=== PATIENT | female | born 1950 | race Caucasian/White ===

== ENCOUNTER 2024-04-23 06:51 | Day surgery (SDC) | payer MEDICARE, OTHER ==
[2024-04-23] MEDS ORDERED: fentaNYL 100 MCG/2 ML SDV IV ONE (07:38)
[2024-04-23] MEDS ORDERED: fentaNYL 100 MCG/2 ML SDV ONE (07:38)
[2024-04-23] MEDS ORDERED: Midazolam 1 MG/ML 2 ML SDV ONE (07:38)
[2024-04-23] MEDS ORDERED: Midazolam 1 MG/ML 2 ML SDV IV ONE (07:38)
[2024-04-23] MEDS: Dextrose 5%-0.45% NaCl 1,000 ML IV SCH (07:49)
[2024-04-23] MEDS: fentaNYL 100 MCG/2 ML SDV IV ONE ×2 (08:21→08:22)
[2024-04-23] MEDS: Midazolam 1 MG/ML 2 ML SDV IV ONE ×6 (08:22→08:35)
== END 2024-04-23 10:10 | disposition home or self-care (01) ==
LOC: DL.ENDO 06:51
PROVIDERS: ATTEND Internal Medicine Gastroenterology
DX: Z12.11 Encounter for screening for malignant neoplasm of colon (principal); K57.30 Diverticulosis of large intestine without perforation or abscess without bleeding; E03.9 Hypothyroidism, unspecified; Z86.0100 Personal history of colon polyps, unspecified
CPT/HCPCS: G0105; J2250; J3010; J7799